=== PATIENT | female | born 1965 | race African-American/Black ===

== ENCOUNTER 2017-05-16 17:35 | Emergency (ER) | payer OTHER ==
[2017-05-16 17:44] VITALS: BP 126/85; PULSE 101; TEMP 98.5; BMI 39.9
[2017-05-16] MEDS ORDERED: KETOROLAC TROMETHAMINE 60 MG/2 ML VIAL IM ONE (18:39)
[2017-05-16] MEDS ORDERED: diazePAM 5 MG TABLET PO ONE (18:39)
--- NOTE | 2017-05-16 18:39 | PDOC ---
History of Present Illness - General Chief Complaint: Pain, Acute Stated Complaint: PAIN Time Seen by Provider: 05/16/17 18:30 History Source: Patient Exam Limitations: No Limitations - History of Present Illness Initial Comments: 05/16/17 18:32 CHIEF COMPLAINT: Lower back pain HISTORY OF PRESENT ILLNESS: 51-year-old female, history of hypertension presents emergency Department with lower back pain. Patient states pain is radiating down left leg. 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 Denies any neurosensory deficits, no bowel or bladder difficulty incontinence or urinary retention, no saddle anesthesia, no footdrop. No history of IVDU or history of cancer. REVIEW OF SYSTEMS: GENERAL: Afebrile, denies any weakness RESPIRATORY: No cough, wheezing, or hemoptysis. CARDIAC: No chest pain or shortness of breath MUSCULOSKELETAL: Pain to generalized lower back. No point tenderness. Pain worse on left than right SKIN : No erythema, no bruising, no deformity. GI/: Denies any abdominal pain, no urinary difficulty, incontinence or urinary retention. RECTAL: Denies any difficulty this A.m. NEUROLOGICAL: Denies any numbness or tingling. No neurosensory deficits. PHYSICAL EXAM: GENERAL: The patient is awake, alert, and fully oriented, in no acute distress. RESPIRATORY: Lungs clear bilaterally, no rhonchi wheezes or crackles CARDIAC: S1-S2 audible, no murmur rub or gallop MUSCULOSKELETAL: Pain to generalized lower back, nonradiating, no tingling or sensory deficit. Less than 2 second cap refill, +4 popliteal and pedal pulses. GI/: Abdomen soft, nontender, nondistended. No rebound tenderness. No masses palpable. MUSCULOSKELETAL: No spinal point tenderness. Normal reflexive and no deficits to sensation or strength. Pain with straight leg raise RECTAL: Normal Rectal Tone. SKIN: Warm, Dry, normal turgor, no erythema, no edema no bruising. Past History - Past Medical History Allergies/Adverse Reactions: Allergies Allergy/AdvReac Type Severity Reaction Status Date / Time No Known Allergies Allergy Verified 05/16/17 17:43 Home Medications: Ambulatory Orders Amlodipine Besylate [Norvasc -] 5 mg PO DAILY 05/16/17 Diazepam [Valium] 5 mg PO Q8H #12 tablet MDD 3 05/16/17 Ibuprofen [Motrin -] 600 mg PO QID #28 tablet 05/16/17 HTN: Yes - Reproductive History (#): 10 Para: 2 - Immunization History Immunization Up to Date: Yes - Psycho/Social/Smoking Cessation Hx Anxiety: Yes Suicidal Ideation: No Smoking Status: No Smoking History: Never smoked Number of Cigarettes Smoked Daily: 0 Information on smoking cessation initiated: No Hx Alcohol Use: No Drug/Substance Use Hx: No Substance Use Type: None *Physical Exam - Vital Signs Last Vital Signs Temp Pulse Resp BP Pulse Ox 98.5 F 101 H 18 126/85 97 05/16/17 17:38 05/16/17 17:38 05/16/17 17:38 05/16/17 17:38 05/16/17 17:38 Medical Decision Making - Medical Decision Making 05/16/17 18:39 A/P: Patient with lower back pain radiating down left leg. History of same in the past and was started on physical therapy, patient states she felt better and stopped. 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 Toradol 60 mg IM and Valium 5 mg by mouth. Patient states complete relief of pain 100% after medication. encourage patient not to lift anything greater than 10 pounds for at least a week. Recommend follow-up with PMD who saw her for same pain in the past. I discussed the physical exam findings, ancillary test results and final diagnoses with the patient. I answered all of the patient's questions. The patient was satisfied with the care received and felt comfortable with the discharge plan and treatment plan. The patient will call to arrange follow-up and will return to the Emergency Department with any new, persistent or worsening symptoms. *DC/Admit/Observation/Transfer Diagnosis at time of Disposition: Low back pain Qualifiers: Chronicity: acute Back pain laterality: left Sciatica presence: with sciatica Sciatica laterality: sciatica of left side Qualified Code(s): M54.42 - Lumbago with sciatica, left side - Discharge Dispostion Disposition: HOME Condition at time of disposition: Good Admit: No - Prescriptions Prescriptions: Ibuprofen [Motrin -] 600 mg PO QID #28 tablet Diazepam [Valium] 5 mg PO Q8H #12 tablet MDD 3 - Referrals Referrals: Cinthia Friedman MD [Primary Care Provider] - Sanford Leiva MD [Staff Physician] - - Patient Instructions Printed Discharge Instructions: DI for Low Back Pain Additional Instructions: 1. Please return to the emergency department with any numbness, tingling, weakness, numbness or tingling to groin or legs, or loss of bowel or bladder function. 2. Use pain medication as ordered. 3. Please is to followup in the office of Dr. leiva for evaluation within a week if no improvement. 4. Ice or heat 5. Refrain from lifting anything above 10 pounds, until pain resolved.
[2017-05-16] MEDS ORDERED: KETOROLAC TROMETHAMINE 60 MG/2 ML VIAL ONE (18:43)
[2017-05-16] MEDS ORDERED: diazePAM 5 MG TABLET ONE (18:43)
== END 2017-05-16 19:41 | disposition home or self-care (01) ==
LOC: JERFT 17:35
PROC: 3E0233Z Introduction of Anti-inflammatory into Muscle, Percutaneous Approach (ICD-10-PCS; principal; 2017-05-16)
DX: M54.42 Lumbago with sciatica, left side (principal)
CPT/HCPCS: 99281-25

== ENCOUNTER 2019-05-21 16:37 | Emergency (ER) | payer OTHER ==
[2019-05-21 16:48] VITALS: TEMP 97; BMI 43.9
[2019-05-21] MEDS ORDERED: amLODIPine BESYLATE 10 MG TABLET (FP) PO ONE (17:04)
[2019-05-21] MEDS ORDERED: IBUPROFEN 400 MG TABLET (FP) PO ONE ×2 (17:04→17:08)
[2019-05-21] MEDS ORDERED: amLODIPine BESYLATE 5 MG TABLET (FP) ONE (17:09)
--- NOTE | 2019-05-21 17:39 | PDOC ---
History of Present Illness - General Chief Complaint: Pain Stated Complaint: PAIN ON LEFT RADHA Time Seen by Provider: 05/21/19 17:00 History Source: Patient (L thumb and wrist pain X 6 months) Exam Limitations: No Limitations Past History - Travel Traveled outside of the country in the last 30 days: No Close contact w/someone who was outside of country & ill: No - Past Medical History Allergies/Adverse Reactions: Allergies Allergy/AdvReac Type Severity Reaction Status Date / Time No Known Allergies Allergy Verified 05/21/19 16:45 Home Medications: Ambulatory Orders Amlodipine Besylate [Norvasc -] 5 mg PO DAILY 05/16/17 Diazepam [Valium] 5 mg PO Q8H #12 tablet MDD 3 05/16/17 Ibuprofen [Motrin -] 600 mg PO QID #28 tablet 05/16/17 CVA: No COPD: No HTN: Yes - Reproductive History (#): 10 Para: 2 - Immunization History Immunization Up to Date: Yes - Suicide/Smoking/Psychosocial Hx Smoking Status: No Smoking History: Never smoked Have you smoked in the past 12 months: No Number of Cigarettes Smoked Daily: 0 Information on smoking cessation initiated: No Hx Alcohol Use: No Drug/Substance Use Hx: No Substance Use Type: None Review of Systems - Review of Systems Constitutional: No: Chills, Fever HEENTM: No: Blurred Vision Respiratory: No: Shortness of Breath Cardiac (ROS): No: Chest Pain Musculoskeletal: Yes: Joint Pain (L thumb and wrist). No: Gout, Joint Swelling , Joint Stiffness Neurological: No: Headache, Numbness, Paresthesia, Tingling, Weakness, Unsteady Gait, Dizziness *Physical Exam - Vital Signs Last Vital Signs Temp Pulse Resp BP Pulse Ox 97.0 F L 97 H 16 174/63 H 100 05/21/19 16:45 05/21/19 16:45 05/21/19 16:45 05/21/19 16:45 05/21/19 16:45 - Physical Exam General Appearance: Yes: Nourished HEENT: positive: EOMI, QUETA, Normal ENT Inspection Respiratory/Chest: positive: Lungs Clear, Normal Breath Sounds Cardiovascular: positive: Regular Rhythm, Regular Rate, S1, S2 Extremity: positive: Normal Capillary Refill, Normal Inspection, Tender (+ limited ROM in thumb d/t pain, no swelling, no snuff box tenderness, + tenderness in radial aspect of wrist, FROM, distal pulse intact) Integumentary: positive: Normal Color Neurologic: positive: fruit or nut grower II-XII NML intact, Fully Oriented, Alert, Normal Mood/ Affect, Normal Response, Motor Strength 03/22 ED Treatment Course - RADIOLOGY Radiology Studies Ordered: Category Date Time Status FINGER(S) LEFT [RAD] Stat Radiology 05/21/19 17:04 Taken WRIST W/HAND-LEFT* [RAD] Stat Radiology 05/21/19 17:04 Taken - Medications Given in the ED: ED Medications Discontinued Medications Generic Name Dose Route Start Last Admin Trade Name Freq PRN Reason Stop Dose Admin Amlodipine Besylate 10 mg 05/21/19 17:04 05/21/19 17:12 Norvasc - PO 05/21/19 17:05 10 mg ONCE ONE Administration Ibuprofen 800 mg 05/21/19 17:04 05/21/19 17:12 Motrin - PO 05/21/19 17:05 800 mg ONCE ONE Administration Medical Decision Making - Medical Decision Making 05/21/19 17:36 53y/o F with h/o HTN p/w L thumb and wrist pain X 6 months pt reports she hyper-extended finger while pushing on glass door she never seek medical attention at the time pain in intermittent she is R hand dominant denies any new injury elevated BP noted, admits to h/o HTN (not compliant with meds, takes it sometimes, last HTN med taken was 2 days ago, she is on 2 BP meds at home), pt denies FISHER, blurred vision, dizziness or CP Importance of HTN med discussed with pt, complication of uncontrolled BP also discussed pt verbalized understanding 05/21/19 17:54 Prelim xray negative for fracture or dislocation likely tendonitis wrist splint given, ortho referral for further evaluation 05/21/19 19:38 05/24/19 08:58 + old ulnar styloid fx noted, pt called and made aware f/u with ortho recommended again *DC/Admit/Observation/Transfer Diagnosis at time of Disposition: Pain of left thumb, Wrist pain, left - Discharge Dispostion Disposition: HOME Condition at time of disposition: Stable - Referrals Referrals: Marcie Ching MD [Primary Care Provider] - Rigo Meyers DO [Staff Physician] - - Patient Instructions Additional Instructions: Your prelimary xray report was negative for acute fracture and dislocation If the official report reads otherwise you will be contacted please follow up with orthopedic clinic for further evaluation - Post Discharge Activity
[2019-05-21 18:16] VITALS: BP 186/86; PULSE 78
== END 2019-05-21 18:18 | disposition home or self-care (01) ==
LOC: JERFT 16:37
DX: M25.532 Pain in left wrist (principal); M79.645 Pain in left finger(s); I10 Essential (primary) hypertension; X58.XXXA Exposure to other specified factors, initial encounter; Y93.89 Activity, other specified; Y92.89 Other specified places as the place of occurrence of the external cause
CPT/HCPCS: 73110-TC-LT-FY; 73130-TC-LT-FY; 73140-TC-LT-FY; 99281-25

== ENCOUNTER 2021-08-16 17:42 | Emergency (ER) | payer OTHER ==
[2021-08-16 18:05] VITALS: BP 137/86; PULSE 85; TEMP 98.1; BMI 43.0
[2021-08-16] MEDS ORDERED: KETOROLAC TROMETHAMINE 60 MG/2 ML VIAL IM ONE (18:43)
[2021-08-16] MEDS ORDERED: KETOROLAC TROMETHAMINE 60 MG/2 ML VIAL ONE (18:44)
[2021-08-16] MEDS ORDERED: ACETAMINOPHEN 500 MG TABLET (FP) PO ONE (18:51)
[2021-08-16] MEDS ORDERED: ACETAMINOPHEN 500 MG TABLET (FP) ONE (18:53)
== END 2021-08-16 19:37 | disposition home or self-care (01) ==
LOC: JERFT 17:42
PROC: 3E0233Z Introduction of Anti-inflammatory into Muscle, Percutaneous Approach (ICD-10-PCS; principal; 2021-08-16)
DX: S39.92XA Unspecified injury of lower back, initial encounter (principal); S79.912A Unspecified injury of left hip, initial encounter; W17.89XA Other fall from one level to another, initial encounter
CPT/HCPCS: 71111-TC-FY; 72100-TC-FY; 73523-TC-FY; 96372; 99285-25

== ENCOUNTER 2023-10-31 20:05 | Emergency (ER) | payer OTHER ==
[2023-10-31 20:18] VITALS: BP 182/102; PULSE 92; RESP 20; TEMP 99.2; BMI 43.1
[2023-10-31] MEDS ORDERED: ACETAMINOPHEN 500 MG TABLET (FP) PO ONE (21:13)
[2023-10-31] MEDS ORDERED: ACETAMINOPHEN 500 MG TABLET (FP) ONE (21:15)
== END 2023-10-31 23:01 | disposition home or self-care (01) ==
LOC: FER 20:05
DX: M25.552 Pain in left hip (principal); S46.911A Strain of unspecified muscle, fascia and tendon at shoulder and upper arm level, right arm, initial encounter; S63.501A Unspecified sprain of right wrist, initial encounter; S73.102A Unspecified sprain of left hip, initial encounter; W01.0XXA Fall on same level from slipping, tripping and stumbling without subsequent striking against object, initial encounter
CPT/HCPCS: 72170-TC-FY; 73030-TC-RT-FY; 73110-TC-RT-FY; 73130-TC-RT-FY; 73552-TC-LT-FY; 99284-25